=== PATIENT | female | born 1960 | race Caucasian/White ===

== ENCOUNTER 2019-10-08 09:34 | Emergency (ER) | payer OTHER ==
[2019-10-08 09:39] VITALS: BP 184/106
--- NOTE | 2019-10-08 09:45 | ED ---
Skin Complaint - HPI Summary HPI Summary: 59-year-old female presents to the emergency department today with chief complaint of a painful and pruritic rash on her right shoulder. Patient states she's had this rash for approximately 8 days. Patient has been taking Motrin for pain. Patient states she has had chickenpox in the past. The rash extends from her right shoulder to the base of her neck and to the Spirit portion of her right chest and does not cross midline. This is erythematous with crusted vesicles. Rashes consistent with varicella zoster. Patient is otherwise well and denies fevers, chest pain, abdominal pain, nausea, vomiting, diarrhea, shortness of breath, recent travel. - History of Current Complaint Chief Complaint: EDRashSkinAbscess Time Seen by Provider: 10/08/19 09:43 Stated Complaint: RASH PER PT Hx Obtained From: Patient Onset/Duration: Started Days Ago Skin Exposure Onset/Duration: Days Ago Timing: Constant Onset Severity: Moderate Current Severity: Moderate Pain Intensity: 5 Pain Scale Used: 0-10 Numeric Skin Location: Discrete - Right shoulder Aggravating Symptom(s): OTC Meds Associated Signs & Symptoms: Rash - Allergy/Home Medications Allergies/Adverse Reactions: Allergies Allergy/AdvReac Type Severity Reaction Status Date / Time sodium pentathol Allergy Unknown Uncoded 10/08/19 09:35 Reaction Details Home Medications: Home Medications Escitalopram (NF) 1 tab PO QAM 04/13/13 [History Confirmed 12/18/14] Folbee 1 tab PO DAILY 04/13/13 [History Confirmed 12/18/14] Lisinopril TAB* 1 tab PO QAM 04/13/13 [History Confirmed 12/18/14] Metoprolol Tartrate TAB* 1 tab PO BID 04/13/13 [History Confirmed 12/18/14] Proair Hfa Inhaler* 2 puff INH Q4H PRN 04/13/13 [History Confirmed 12/18/14] Spiriva* 1 puff INH QAM 04/13/13 [History Confirmed 12/18/14] Symbicort 160/4.5 (NF) 2 puff INH BID 04/13/13 [History Confirmed 12/18/14] Vitamin B-1 TAB* 1 tab PO DAILY 04/13/13 [History Confirmed 12/18/14] Escitalopram * [Lexapro 10 mg (NF)] 10 mg PO DAILY 09/22/13 [History Confirmed 12/18/14] Lisinopril TAB* [Prinivil TAB 10 MG*] 40 mg PO DAILY 09/22/13 [History Confirmed 12/18/14] Metoprolol Succinate [Metoprolol Succinate ER] 50 mg PO BID 09/22/13 [History Confirmed 12/18/14] Tiotropium CAPSULE (NF) [Spiriva*] 18 mcg INH BID 09/22/13 [History Confirmed ] Acyclovir* [Zovirax 200 MG CAP*] 800 mg PO 5ID #140 cap 10/08/19 [Rx] PMH/Surg Hx/FS Hx/Imm Hx Endocrine/Hematology History: Reports: Hx Anemia Denies: Hx Diabetes Cardiovascular History: Reports: Hx Hypertension Denies: Hx Congestive Heart Failure, Hx Pacemaker/ICD Respiratory History: Reports: Hx Asthma - USES 2-3 INHALERS, Hx Chronic Obstructive Pulmonary Disease (COPD), Other Respiratory Problems/Disorders - TOBACCO USE/"TROUBLE BREATHING" History: Denies: Hx Renal Disease Sensory History: Reports: Hx Contacts or Glasses - GLASSES Denies: Hx Hearing Aid Opthamlomology History: Reports: Hx Contacts or Glasses - GLASSES Psychiatric History: Reports: Hx Anxiety - ON MEDICATION, Hx Depression - ON MEDICATION Denies: Hx Panic Disorder - Cancer History Cancer Type, Location and Year: BREAST Hx Chemotherapy: No Hx Radiation Therapy: Yes - 10/05 - Surgical History Surgery Procedure, Year, and Place: breast biopsy, lumpectomy right breast DCIS Hx Anesthesia Reactions: Yes - SODIUM PENTATHOL-COULD NOT WALK X 2 WEEKS Infectious Disease History: No Infectious Disease History: Denies: Traveled Outside the [place] in Last 30 Days - Social History Alcohol Use: None Alcohol Amount: Alcohol Recovery Substance Use Type: Reports: None Smoking Status (MU): Heavy Every Day Tobacco Smoker Review of Systems Constitutional: Negative Eyes: Negative ENT: Negative Cardiovascular: Negative Respiratory: Negative Gastrointestinal: Negative Genitourinary: Negative Musculoskeletal: Negative Positive: Rash Neurological/Mental Status: Negative Psychological: Normal All Other Systems Reviewed And Are Negative: Yes Physical Exam - Summary Physical Exam Summary: Patient is in no acute distress. There is an erythematous macular diffuse rash with crusted vesicles noted to her right shoulder in the C3, C4 dermatome. Rashes consistent with varicella-zoster. Patient has subjective pruritus. No evidence of postherpetic neuralgia. Triage Information Reviewed: Yes Vital Signs On Initial Exam: Initial Vitals Temp Pulse Resp BP Pulse Ox 98.3 F 98 20 184/106 97 10/08/19 09:35 10/08/19 09:35 10/08/19 09:35 10/08/19 09:35 10/08/19 09:35 Vital Signs Reviewed: Yes Appearance: Positive: Well-Appearing, No Pain Distress, Well-Nourished Skin: Positive: Warm, Skin Color Reflects Adequate Perfusion Eyes: Positive: EOMI, NOE ENT: Positive: Hearing grossly normal Respiratory/Lung Sounds: Positive: Clear to Auscultation, Breath Sounds Present Cardiovascular: Positive: RRR, S1, S2 Abdomen Description: Positive: Nontender, Soft Bowel Sounds: Positive: Present Musculoskeletal: Positive: Strength/ROM Intact Neurological: Positive: Sensory/Motor Intact, Alert, Oriented to Person Place, Time, Normal Gait, Facial Symmetry, Speech Normal Psychiatric: Positive: Normal, Affect/Mood Appropriate AVPU Assessment: Alert Procedures - Sedation Patient Received Moderate/Deep Sedation with Procedure: No Diagnostics - Vital Signs Vital Signs Temp Pulse Resp BP Pulse Ox 10/08/19 09:35 98.3 F 98 20 184/106 97 - Laboratory Lab Statement: Any lab studies that have been ordered have been reviewed, and results considered in the medical decision making process. Course/Dx - Course Course Of Treatment: Patient was evaluated in the emergency department today for rash. Vitals noted and stable. Patient's rash was consistent with varicella-zoster. No evidence of post herpetic neuralgia. Patient's rash has crusted over. Patient was given acyclovir 800 mg in the emergency department as well as a prescription for 800 mg of acyclovir by mouth 5 times daily for 7 days. Patient discharged with outpatient follow-up with her PCP. - Differential Diagnoses - Skin Complaint Differential Diagnoses: Cellulitis, Varicella Zoster - Diagnoses Provider Diagnoses: Zoster Discharge ED - Sign-Out/Discharge Documenting (check all that apply): Patient Departure - Discharge Plan Condition: Stable Disposition: HOME Prescriptions: Acyclovir* [Zovirax 200 MG CAP*] 800 mg PO 5ID #140 cap Patient Education Materials: Shingles (ED) Forms: *Work Release Referrals: Virginia Rosenberg MD [Primary Care Provider] - 3 Days Additional Instructions: Please take acyclovir 800mg 5 times a day for 7 days. Please follow up with your PCP in 3 days for further evaluation. Please take ibuprofen 600mg every 6 hours as needed for pain. Please return to the ER if you develop any new or worsening symptoms. - Billing Disposition and Condition Condition: STABLE Disposition: Home
[2019-10-08] MEDS ORDERED: Acyclovir* 400 MG TAB PO ONE (09:58)
== END 2019-10-08 10:50 | disposition home or self-care (01) ==
LOC: ED 09:34
DX: B02.9 Zoster without complications (principal); D64.9 Anemia, unspecified; I10 Essential (primary) hypertension; J44.9 Chronic obstructive pulmonary disease, unspecified; F41.9 Anxiety disorder, unspecified; F32.9 Major depressive disorder, single episode, unspecified; Z85.3 Personal history of malignant neoplasm of breast; Z79.899 Other long term (current) drug therapy; Z88.8 Allergy status to other drugs, medicaments and biological substances
CPT/HCPCS: 99282; A9270-GY

== ENCOUNTER 2020-12-29 19:43 | Inpatient (IN) ==
[2020-12-29] MEDS ORDERED: Dexamethasone IV 4 MG/ML 5 ML VIAL (20 MG) IVPB ONE (20:04)
[2020-12-29] MEDS ORDERED: Magnesium Sulfate 2 gm BAG 2 GM/50 ML BAG IVPB ONE (20:04)
[2020-12-29] MEDS ORDERED: Lactated Ringers 1000 ml BAG 1,000 ML IV ONE (20:04)
[2020-12-29 20:41] LABS: ABS Eosinophils 0.1 10^3/ul (0-0.6); ABS Lymphocytes 1.4 10^3/ul (1.0-4.8); ABS Monocytes 0.7 10^3/ul (0-0.8); ABS Neutrophils 4.4 10^3/ul (1.5-7.7); Eosinophil % 0.9 %; Hematocrit 45 % (35-47); Hemoglobin 15.6 g/dL (12.0-16.0); Lymphocyte % 20.6 %; Mean Corpuscular HGB Conc 35 g/dL (31-36); Mean Corpuscular Hemoglobin 30 pg (27-31); Mean Corpuscular Volume 86 fL (80-97); Mean Platelet Volume 7.2 fL (7.4-10.4); Platelet Count 342 10^3/uL (150-450); Red Blood Count 5.22 10^6 /uL (3.70-4.87); Red Cell Distribution Width 14 % (10-15); White Blood Count 6.6 10^3/uL (3.5-10.8)
[2020-12-29 20:57] LABS: Blood Urea Nitrogen 7 mg/dL (6-24); CO2 Carbon Dioxide 27 mmol/L (22-32); Calcium 9.3 mg/dL (8.6-10.3); Chloride 90 mmol/L (101-111); EGFR African American 145.1 (>60); EGFR Non-African American 119.9 (>60); Glucose 91 mg/dL (70-100); Sodium 123 mmol/L (135-145)
[2020-12-29 20:59] LABS: Troponin I 0.01 ng/mL (<0.03)
[2020-12-29] MEDS ORDERED: Albuterol HFA INHALER 8 gm MDI INH SCH (21:00)
[2020-12-29] MEDS ORDERED: Iohexol 350 (CONTRAST) 500 ML MDV IV ONE (21:00)
[2020-12-29] MEDS ORDERED: Ipratropium HFA INHALER(NF) (ALTERNATIVE = NEBS) INH SCH (21:00)
[2020-12-29 21:04] LABS: Influenza A Molecular Negative (Negative); Influenza B Molecular Negative (Negative)
[2020-12-29 21:08] LABS: Anion Gap 6 mmol/L (2-11)
[2020-12-30] MEDS ORDERED: Magnesium Hydroxide LIQ 30 ML UDC PO PRN (01:41)
[2020-12-30] MEDS ORDERED: NS 0.9% 1000 ml BAG 1,000 ML IV SCH (02:00)
[2020-12-30] MEDS ORDERED: methylPREDNISolone SOD 40 mg/ml 1 ml VIAL IV SCH (02:00)
[2020-12-30 03:47] LABS: ALT 10 U/L (7-52); Albumin 4.1 g/dL (3.2-5.2); Albumin/Globulin Ratio 1.4 (1-3); Alkaline Phosphatase 60 U/L (35-149); C Reactive Protein 1.31 mg/L (<8.01); Globulin 2.9 g/dL (2-4)
[2020-12-30 04:34] LABS: Urine Appearance Cloudy; Urine Bilirubin Negative (Negative); Urine Blood Negative (Negative); Urine Color Yellow; Urine Glucose Negative (Negative); Urine Ketones Negative (Negative); Urine Nitrite Negative (Negative); Urine Protein 1+(30 mg/dL) (Negative); Urine Specific Gravity 1.002 (1.002-1.030); Urine Urobilinogen Negative (Negative)
[2020-12-30 04:54] LABS: Urine Benzodiazepine Screen None Detected (None Detect); Urine Cannabinoids Screen None Detected (None Detect); Urine Opiates Screen None Detected (None Detect)
[2020-12-30] MEDS: Albuterol/Ipratropium NEB.SOL (2.5/0.5 MG) 3 ML NEB.SOLN INH SCH ×6 (05:00→23:11)
[2020-12-30] MEDS: Enoxaparin 30 MG/0.3 ML SYR SUBCUT SCH (05:06)
[2020-12-30 05:15] LABS: Erythrocyte Sed Rate 9 mm/Hr (0-29)
[2020-12-30 05:36] LABS: Urine Bacteria 1+ (Absent); Urine Red Blood Cell Trace(0-2/hpf) (Absent); Urine Squamous Epithelial Cell Present (Absent); Urine White Blood Cell Trace(0-5/hpf) (Absent)
[2020-12-30] MEDS: Azithromycin 500 mg/250 ml NS 500 MG/250 ML BAG IVPB SCH (12:51)
[2020-12-30 17:12] LABS: Calcium 8.8 mg/dL (8.6-10.3); EGFR African American 89.5 (>60); Potassium 4.3 mmol/L (3.5-5.0)
[2020-12-31] MEDS: Albuterol/Ipratropium NEB.SOL (2.5/0.5 MG) 3 ML NEB.SOLN INH SCH ×2 (03:35→09:46)
[2020-12-31 07:00] LABS: ABS Lymphocytes 1.6 10^3/ul (1.0-4.8); ABS Monocytes 0.8 10^3/ul (0-0.8); ABS Neutrophils 4.2 10^3/ul (1.5-7.7); Eosinophil % 0.5 %; Hematocrit 39 % (35-47); Hemoglobin 13.1 g/dL (12.0-16.0); Lymphocyte % 23.4 %; Mean Corpuscular HGB Conc 33 g/dL (31-36); Mean Corpuscular Hemoglobin 29 pg (27-31); Mean Corpuscular Volume 87 fL (80-97); Mean Platelet Volume 7.1 fL (7.4-10.4); Platelet Count 327 10^3/uL (150-450); Red Blood Count 4.51 10^6 /uL (3.70-4.87); Red Cell Distribution Width 14 % (10-15); White Blood Count 6.7 10^3/uL (3.5-10.8)
[2020-12-31] MEDS ORDERED: Albuterol/Ipratropium NEB.SOL (2.5/0.5 MG) 3 ML NEB.SOLN INH PRN (07:07)
[2020-12-31 07:18] LABS: Calcium 8.6 mg/dL (8.6-10.3); EGFR African American 127.9 (>60); EGFR Non-African American 105.7 (>60)
[2020-12-31] MEDS ORDERED: Albuterol HFA INHALER 8 gm MDI INH PRN (08:11)
[2020-12-31] MEDS: Enoxaparin 30 MG/0.3 ML SYR SUBCUT SCH (08:12)
[2020-12-31] MEDS ORDERED: Mometasone/Formoter 100/5 MDI INH SCH (09:00)
[2020-12-31] MEDS ORDERED: SPIRIVA Respimat (tiotropium) 2.5 mcg/inh Inhaler INH SCH (09:00)
[2020-12-31] MEDS: Azithromycin 500 mg/250 ml NS 500 MG/250 ML BAG IVPB SCH (09:48)
[2020-12-31 13:08] VITALS: BP 154/90
[2020-12-31] MEDS ORDERED: COVID-19 VACCINE, AD26(JANSSEN)/PF 0.5 ML IM ONE (15:30)
== END 2020-12-31 15:30 | disposition home or self-care (01) | DRG 140 ==
LOC: ED 19:43 → MED 12-30 01:41
PROVIDERS: ADMIT Internal Medicine; ATTEND Hospitalist

== ENCOUNTER 2023-07-13 18:22 | Inpatient (IN) ==
[2023-07-13] MEDS ORDERED: Albuterol/Ipratropium NEB.SOL (2.5/0.5 MG) 3 ML NEB.SOLN INH ONE (19:28)
[2023-07-13] MEDS ORDERED: Dexamethasone IV 4 MG/ML VIAL 1 ml VIAL IV SLOW PU ONE (19:30)
[2023-07-13] MEDS ORDERED: cefTRIAXone 2 gm/50 mL D5W 2 GM/50 ML BAG IV ONE (19:31)
[2023-07-13] MEDS ORDERED: Nicotine PATCH 14 MG/24 HR PATCH TRANSDERM ONE (19:31)
[2023-07-13] MEDS ORDERED: Magnesium Sulfate 2 gm BAG 2 GM/50 ML BAG IVPB ONE (19:31)
[2023-07-13 20:12] LABS: ABS Basophils 0.1 10^3/uL (0.0-0.1); ABS Eosinophils 0.1 10^3/uL (0.0-0.5); ABS Lymphocytes 2.3 10^3/uL (1.0-4.8); ABS Monocytes 0.7 10^3/uL (0.0-0.9); ABS Neutrophils 5.1 10^3/uL (1.5-7.6); Eosinophil % 1.7 %; Hematocrit 43.6 % (35-45); Hemoglobin 14.5 g/dL (11.5-14.3); Lymphocyte % 28.2 %; Mean Corpuscular Hemoglobin 28.1 pg (27-33); Mean Corpuscular Hgb Conc 33.4 g/dL (31-36); Mean Corpuscular Volume 84.1 fL (80-97); Mean Platelet Volume 7.7 fL (7.5-11.2); Platelet Count 387 10^3/uL (150-450); Red Blood Count 5.18 10^6/uL (3.63-4.92); Red Cell Distribution Width 15.1 % (12-17); White Blood Count 8.3 10^3/uL (3.8-11.8)
[2023-07-13 20:31] LABS: Albumin 4.6 g/dL (3.2-5.2); Albumin/Globulin Ratio 1.4 (1-3); C Reactive Protein 1.05 mg/L (<8.01); Calcium 9.5 mg/dL (8.6-10.3); Creatinine, Serum 0.64 mg/dL (0.51-0.95); Globulin 3.2 g/dL (2-4); Potassium 4.3 mmol/L (3.5-5.0); Total Bilirubin 0.2 mg/dL (0.2-1.0); Total Protein 7.8 g/dL (6.4-8.9); eGFR CKD-EPI 98.6 (>60)
[2023-07-13 20:37] LABS: HCG Pregnancy 5.41 mIU/mL
[2023-07-13 21:05] LABS: INR 0.95 (0.83-1.13)
[2023-07-13 21:27] LABS: High Sensitivity Troponin 1 Hr 3 pg/mL (<15)
[2023-07-13] MEDS ORDERED: Iohexol 350 (CONTRAST) 500 ML MDV IV ONE (22:23)
[2023-07-14] MEDS ORDERED: Albuterol/Ipratropium NEB.SOL (2.5/0.5 MG) 3 ML NEB.SOLN INH PRN (04:05)
[2023-07-14] MEDS ORDERED: Heparin 5000 UNITS/ML 1 mL VIAL SUBCUT SCH (06:00)
[2023-07-14] MEDS: methylPREDNISolone SOD SUCC 40 mg/ml 1 ml VIAL IV SCH ×3 (06:58→20:41)
[2023-07-14] MEDS: Azithromycin 500 mg/250 ml NS 500 MG/250 ML BAG IVPB SCH (11:25)
[2023-07-14] MEDS: Psyllium PAK PO SCH (14:28)
[2023-07-14] MEDS: Enoxaparin 40 MG/0.4 ML SYR SUBCUT SCH (14:29)
[2023-07-14] MEDS: Albuterol/Ipratropium NEB.SOL (2.5/0.5 MG) 3 ML NEB.SOLN INH SCH ×2 (14:33→20:45)
[2023-07-14] MEDS: SPIRIVA Respimat (tiotropium) 2.5 mcg/inh Inhaler INH SCH (14:41)
[2023-07-14 16:28] LABS: Urine Appearance Cloudy; Urine Bilirubin Negative (Negative); Urine Blood Negative (Negative); Urine Color Yellow; Urine Glucose Negative (Negative); Urine Ketones Negative (Negative); Urine Nitrite Negative (Negative); Urine Protein 2+(100 mg/dL) (Negative); Urine Specific Gravity 1.027 (1.002-1.030); Urine Urobilinogen Negative (Negative)
[2023-07-14 16:51] LABS: Urine Bacteria Absent (Absent); Urine Red Blood Cell 2+(6-10/hpf) (Absent); Urine Squamous Epithelial Cell Present (Absent); Urine White Blood Cell 1+(6-10/hpf) (Absent)
[2023-07-14] MEDS ORDERED: Mometasone 220 MCG MDI INH SCH (19:00)
[2023-07-14] MEDS: cefTRIAXone 1 gm/50 mL D5W 1 GM/50 ML BAG IV SCH (20:54)
[2023-07-15] MEDS: methylPREDNISolone SOD SUCC 40 mg/ml 1 ml VIAL IV SCH (05:07)
[2023-07-15 06:21] LABS: ABS Lymphocytes 1.1 10^3/uL (1.0-4.8); ABS Monocytes 0.6 10^3/uL (0.0-0.9); ABS Neutrophils 8.8 10^3/uL (1.5-7.6); Hematocrit 43.8 % (35-45); Hemoglobin 14.3 g/dL (11.5-14.3); Lymphocyte % 10.5 %; Mean Corpuscular Hemoglobin 27.7 pg (27-33); Mean Corpuscular Hgb Conc 32.7 g/dL (31-36); Mean Corpuscular Volume 84.7 fL (80-97); Mean Platelet Volume 8.3 fL (7.5-11.2); Platelet Count 418 10^3/uL (150-450); Red Blood Count 5.17 10^6/uL (3.63-4.92); Red Cell Distribution Width 14.9 % (12-17); White Blood Count 10.5 10^3/uL (3.8-11.8)
[2023-07-15 06:36] LABS: Calcium 9.3 mg/dL (8.6-10.3); Creatinine, Serum 0.76 mg/dL (0.51-0.95); Magnesium 2.1 mg/dL (1.9-2.7); Phosphorus 3.8 mg/dL (2.5-5.0); Potassium 4.7 mmol/L (3.5-5.0); eGFR CKD-EPI 87.4 (>60)
[2023-07-15] MEDS ORDERED: Albuterol/Ipratropium NEB.SOL (2.5/0.5 MG) 3 ML NEB.SOLN INH PRN (08:51)
[2023-07-15] MEDS: SPIRIVA Respimat (tiotropium) 2.5 mcg/inh Inhaler INH SCH (08:52)
[2023-07-15] MEDS: Albuterol/Ipratropium NEB.SOL (2.5/0.5 MG) 3 ML NEB.SOLN INH SCH (08:52)
[2023-07-15] MEDS: Psyllium PAK PO SCH (10:11)
[2023-07-15] MEDS: Azithromycin 500 mg/250 ml NS 500 MG/250 ML BAG IVPB SCH (10:14)
[2023-07-15] MEDS: Enoxaparin 40 MG/0.4 ML SYR SUBCUT SCH (13:32)
[2023-07-15] MEDS: cefTRIAXone 1 gm/50 mL D5W 1 GM/50 ML BAG IV SCH (20:11)
[2023-07-16 05:02] LABS: ABS Basophils 0.1 10^3/uL (0.0-0.1); ABS Lymphocytes 1.9 10^3/uL (1.0-4.8); ABS Monocytes 1.1 10^3/uL (0.0-0.9); ABS Nucleated RBC 0.01 10^3/ul; Eosinophil % 0.2 %; Hematocrit 37.9 % (35-45); Hemoglobin 12.3 g/dL (11.5-14.3); Lymphocyte % 18.5 %; Mean Corpuscular Hemoglobin 27.5 pg (27-33); Mean Corpuscular Hgb Conc 32.5 g/dL (31-36); Mean Corpuscular Volume 84.7 fL (80-97); Mean Platelet Volume 8.1 fL (7.5-11.2); Nucleated Red Blood Cells % 0.1 %/100WBC (0.0-0.8); Platelet Count 343 10^3/uL (150-450); Red Blood Count 4.47 10^6/uL (3.63-4.92); Red Cell Distribution Width 14.5 % (12-17)
[2023-07-16 05:20] LABS: Calcium 8.7 mg/dL (8.6-10.3); Creatinine, Serum 0.54 mg/dL (0.51-0.95); Magnesium 1.9 mg/dL (1.9-2.7); Phosphorus 2.3 mg/dL (2.5-5.0); Potassium 4.1 mmol/L (3.5-5.0); eGFR CKD-EPI 102.7 (>60)
[2023-07-16] MEDS: Psyllium PAK PO SCH (08:30)
[2023-07-16] MEDS: SPIRIVA Respimat (tiotropium) 2.5 mcg/inh Inhaler INH SCH (08:32)
[2023-07-16] MEDS: Albuterol/Ipratropium NEB.SOL (2.5/0.5 MG) 3 ML NEB.SOLN INH SCH ×2 (10:54→19:51)
[2023-07-16] MEDS: methylPREDNISolone SOD SUCC 40 mg/ml 1 ml VIAL IV SCH ×2 (10:54→22:23)
[2023-07-16] MEDS: Enoxaparin 40 MG/0.4 ML SYR SUBCUT SCH (12:02)
[2023-07-17 06:21] LABS: ABS Lymphocytes 0.9 10^3/uL (1.0-4.8); ABS Monocytes 0.4 10^3/uL (0.0-0.9); ABS Neutrophils 7.9 10^3/uL (1.5-7.6); ABS Nucleated RBC 0.01 10^3/ul; Hematocrit 43.5 % (35-45); Hemoglobin 13.6 g/dL (11.5-14.3); Lymphocyte % 9.2 %; Mean Corpuscular Hemoglobin 27.4 pg (27-33); Mean Corpuscular Hgb Conc 31.3 g/dL (31-36); Mean Corpuscular Volume 87.4 fL (80-97); Mean Platelet Volume 7.7 fL (7.5-11.2); Nucleated Red Blood Cells % 0.1 %/100WBC (0.0-0.8); Platelet Count 334 10^3/uL (150-450); Red Blood Count 4.97 10^6/uL (3.63-4.92); Red Cell Distribution Width 15.2 % (12-17); White Blood Count 9.2 10^3/uL (3.8-11.8)
[2023-07-17 06:46] LABS: Calcium 9.1 mg/dL (8.6-10.3); Creatinine, Serum 0.6 mg/dL (0.51-0.95); Potassium 4.7 mmol/L (3.5-5.0); eGFR CKD-EPI 100.2 (>60)
[2023-07-17] MEDS: Psyllium PAK PO SCH (08:21)
[2023-07-17] MEDS: Albuterol/Ipratropium NEB.SOL (2.5/0.5 MG) 3 ML NEB.SOLN INH SCH ×2 (09:03→18:34)
[2023-07-17] MEDS: SPIRIVA Respimat (tiotropium) 2.5 mcg/inh Inhaler INH SCH (09:18)
[2023-07-17] MEDS: methylPREDNISolone SOD SUCC 40 mg/ml 1 ml VIAL IV SCH ×2 (10:12→21:45)
[2023-07-17] MEDS: Enoxaparin 40 MG/0.4 ML SYR SUBCUT SCH (12:32)
[2023-07-17] MEDS ORDERED: hydrALAZINE 20 mg/ml 1 ML Vial IV IV SLOW PU PRN ×2 (14:57→16:13)
[2023-07-18] MEDS: SPIRIVA Respimat (tiotropium) 2.5 mcg/inh Inhaler INH SCH (07:35)
[2023-07-18] MEDS: Albuterol/Ipratropium NEB.SOL (2.5/0.5 MG) 3 ML NEB.SOLN INH SCH (07:36)
[2023-07-18] MEDS: Psyllium PAK PO SCH (08:38)
[2023-07-18] MEDS: methylPREDNISolone SOD SUCC 40 mg/ml 1 ml VIAL IV SCH (08:38)
[2023-07-18 09:00] LABS: ABS Lymphocytes 1.6 10^3/uL (1.0-4.8); ABS Monocytes 0.4 10^3/uL (0.0-0.9); ABS Neutrophils 8.8 10^3/uL (1.5-7.6); Hematocrit 44.7 % (35-45); Hemoglobin 14.7 g/dL (11.5-14.3); Lymphocyte % 14.6 %; Mean Corpuscular Hemoglobin 27.6 pg (27-33); Mean Corpuscular Hgb Conc 32.8 g/dL (31-36); Mean Corpuscular Volume 84.2 fL (80-97); Mean Platelet Volume 7.8 fL (7.5-11.2); Platelet Count 353 10^3/uL (150-450); Red Blood Count 5.31 10^6/uL (3.63-4.92); Red Cell Distribution Width 14.8 % (12-17); White Blood Count 10.9 10^3/uL (3.8-11.8)
[2023-07-18 09:18] LABS: Calcium 9.3 mg/dL (8.6-10.3); Creatinine, Serum 0.67 mg/dL (0.51-0.95); Potassium 4.2 mmol/L (3.5-5.0); eGFR CKD-EPI 97.5 (>60)
[2023-07-18 11:49] VITALS: BP 153/88
== END 2023-07-18 13:45 | disposition home or self-care (01) | DRG 133 ==
LOC: ED 18:22 → SUATTDRO 07-14 04:00 → EDHOLD 07-14 04:00 → SSU 07-14 11:35
PROVIDERS: ADMIT Internal Medicine; ATTEND Student in an Organized Health Care Education/Training Program